=== PATIENT | male | born 1955 | race Caucasian/White ===

== ENCOUNTER 2021-08-04 09:30 | Day surgery (SDC) | payer OTHER, MEDICARE | END 2021-08-04 11:08 | disposition home or self-care (01) | LOC: CSHSDC/OP 09:30 | PROVIDERS: ATTEND Nurse Practitioner Family | DX: Z23 Encounter for immunization (principal); U07.1 COVID-19 | CPT/HCPCS: J3490; M0243; Q0244 ==